=== PATIENT | male | born 1930 | race Caucasian/White ===

== ENCOUNTER 2020-05-26 11:34 | Emergency (ER) | payer OTHER ==
[2020-05-26 11:43] VITALS: BP 159/66; PULSE 61; BMI 33.3
--- OUTSIDE RECORDS SUMMARY | 2020-05-26 11:50 | XMS ---
:1930 Author Organization [facility] Support Name Relationship Address Phone RE Unavailable Unavailable Unavailable SCOTT DIAZ DAUGHTER [address] [phone] [place] [address] Re-disclosure Warning The records that you are about to access may contain information from federally- assisted alcohol or drug abuse programs. If such information is present, then the following federally mandated warning applies: This information has been disclosed to you from records protected by federal confidentiality rules (42 CFR part 2). The federal rules prohibit you from making any further disclosure of this information unless further disclosure is expressly permitted by the written consent of the person to whom it pertains or as otherwise permitted by 42 CFR part 2. A general authorization for the release of medical or other information is NOT sufficient for this purpose. The Federal rules restrict any use of the information to criminally investigate or prosecute any alcohol or drug abuse patient.The records that you are about to access may contain highly sensitive health information, the redisclosure of which is protected by Article 27-F of the [facility] Public Health law. If you continue you may haveaccess to information: Regarding HIV / AIDS; Provided by facilities licensed or operated by the [facility] Office of Mental Health; or Provided by the [facility] Office for People With Developmental Disabilities. If such information is present, then the following [facility] mandated warning applies: This information has been disclosed to you from confidential records which are protected by state law. State law prohibits you from making any further disclosure of this information without the specific written consent of the person to whom it pertains, or as otherwise permitted by law. Any unauthorized further disclosure in violation of state law may result in a fine or retirement sentence or both. A general authorization for the release of medical or other information is NOT sufficient authorization for further disclosure. Insurance Providers Payer name Policy type Policy ID Covered Covered green party's Policy P cecily / Coverage green party ID relationship to [employer] Inf ormation type moore MEDICAID [id number] SP [id number] [employer] [facility] [id number] SP [id number] MEDICARE Results ID Date Data Source [id number] 05/20/2020 12:00:00 AM EDT [facility] Name Value Range Interpretation Code Description Data Xiomy rce(s) Supporting Document(s ) SARS-COV-2 [facility] QL CONOR+PROBE This lab was ordered by Galindo SUERO and reported by [facility]. Procedure
--- NOTE | 2020-05-26 11:57 | PDOC ---
History of Present Illness - General Chief Complaint: Injury Stated Complaint: R/ARM INJURY Time Seen by Provider: 05/26/20 11:56 History Source: Patient Exam Limitations: No Limitations Past History - Travel History Traveled outside of the country in the last 30 days: No Close contact w/someone who was outside of country & ill: No - Medical History Allergies/Adverse Reactions: Allergies Allergy/AdvReac Type Severity Reaction Status Date / Time No Known Allergies Allergy Verified 05/26/20 11:43 COPD: No Diabetes: Yes HTN: Yes Hypercholesterolemia: Yes - Psycho-Social/Smoking History Smoking History: Never smoked Review of Systems - Review of Systems Able to Perform ROS?: Yes Comments:: 05/26/20 14:50 CONSTITUTIONAL: Absent: fever, chills, diaphoresis, generalized weakness, malaise, loss of appetite HEENT: Absent: rhinorrhea, nasal congestion, throat pain, throat swelling, difficulty swallowing, mouth swelling, ear pain, eye pain, visual Changes CARDIOVASCULAR: Absent: chest pain, loss of consciousness, palpitations, irregular heart rate, peripheral edema RESPIRATORY: Absent: cough, shortness of breath, dyspnea with exertion, orthopnea, wheezing, stridor, hemoptysis GASTROINTESTINAL: Absent: abdominal pain, abdominal distension, nausea, vomiting, diarrhea, constipation, melena, hematochezia GENITOURINARY: Absent: dysuria, frequency, urgency, hesitancy, hematuria, flank pain, genital pain MUSCULOSKELETAL: Present: R wrist pain Absent: myalgia, arthralgia, joint swelling SKIN: Present: abrasion to R forehead. Absent: rash, itching, pallor HEMATOLOGIC/IMMUNOLOGIC: Absent: easy bleeding, easy bruising, lymphadenopathy, frequent infections ENDOCRINE: Absent: unexplained weight gain, unexplained weight loss, heat intolerance, cold intolerance NEUROLOGIC: Absent: headache, focal weakness or paresthesias, dizziness, unsteady gait, seizure, mental status changes, bladder or bowel incontinence PSYCHIATRIC: Absent: anxiety, depression, suicidal or homicidal ideation, hallucinations. Is the patient limited Tajik proficient: No *Physical Exam - Vital Signs Last Vital Signs Temp Pulse Resp BP Pulse Ox 97 F L 61 18 159/66 97 05/26/20 11:37 05/26/20 11:37 05/26/20 11:37 05/26/20 11:37 05/26/20 11:37 - Physical Exam 05/26/20 14:51 GENERAL: Well developed, well nourished. Awake and alert. No acute distress. HEENT: Normocephalic, atraumatic. PERRLA, EOMI. No conjunctival pallor. Sclera are non- icteric. Moist mucous membranes. Oropharynx is clear. NECK: Supple. Full ROM. No JVD. Carotid pulses 2+ and symmetric, without bruits. No thyromegaly. No lymphadenopathy. CARDIOVASCULAR: Regular rate and rhythm. No murmurs, rubs, or gallops. Distal pulses are 2+ and symmetric. PULMONARY: No evidence of respiratory distress. Lungs clear to auscultation bilaterally. No wheezing, rales or rhonchi. ABDOMINAL: Soft. Non-tender. Non-distended. No rebound or guarding. No organomegaly. Normoactive bowel sounds. MUSCULOSKELETAL TTP of the dorsal aspect of the R wrist over the radial head with minimal swelling. Normal range of motion at all joints. No bony deformities or tenderness. No CVA tenderness. EXTREMITIES: No cyanosis. No clubbing. No edema. No calf tenderness. SKIN: Abrasion present to the R forehead. Warm and dry. Normal capillary refill. No rashes. No jaundice. NEUROLOGICAL: Alert, awake, appropriate. Cranial nerves 2-12 intact. No deficits to light touch and temperature in face, upper extremities and lower extremities. No motor deficits in the in face, upper extremities and lower extremities. Normoreflexic in the upper and lower extremities. Normal speech. Toes are down-going bilaterally. Gait is normal without ataxia. PSYCHIATRIC: Cooperative. Good eye contact. Appropriate mood and affect. ED Treatment Course - LABORATORY CBC & Chemistry Diagram: 05/26/20 12:35 05/26/20 12:35 - RADIOLOGY Radiology Studies Ordered: Category Date Time Status HEAD CT WITHOUT CONTRAST [CT] Stat CT Scan 05/26/20 11:56 Ordered WRIST W/HAND-RIGHT* [RAD] Stat Radiology 05/26/20 11:57 Ordered Medical Decision Making - Medical Decision Making 05/26/20 14:56 Patient is an 89-year-old male, past medical history of CKD, not on blood thinners, presents to the ER for injuries after a fall on Wednesday. He states he was walking out of the bank when he felt a little dizzy, missed the curb and fell on right outstretched hand. He states he also hit his head against the sidewalk. He denies losing consciousness, nausea, dizziness and vomiting. He states he came to the ER today because his right hand still hurts. He also notes he has right knee pain as a result of the fall. A/P: Right wrist injury On exam patient has a hematoma present to the dorsal aspect of the right hand over the radial head. No anatomical snuffbox tenderness. Patient is full range of motion of the right hand. He is right-hand dominant. Patient is neurologically intact with no focal deficits. Abdomen soft nontender without rebound guarding or tenderness. Given fall with questionable dizziness, work-up ordered including basic labs, EKG and head CT. Labs remarkable for platelets of 85. This seems to be off of the patient's baseline. Creatinine and BUN are both elevated however at baseline. Wrist x-ray, knee x-ray both negative for fractures. Head CT shows no bleed at this time. Likely hematoma to the wrist causing pain. Will recommend supportive therapy and give a wrist brace for comfort. Will refer to orthopedics for further management. Explained to the patient's daughter that his platelets were low at 85 today. She states he has an appointment with his primary care doctor tomorrow. Advised to follow-up and have a repeat blood draw regarding his platelet count. Patient is stable for discharge I discussed the physical exam findings, ancillary test results and final diagnoses with the patient. I answered all of the patient's questions. The patient was satisfied with the care received and felt comfortable with the discharge plan and treatment plan. The Patient agrees to follow up with the primary care physician/specialist within 24-72 hours. Return precautions were given. Discharge - Discharge Information Problems reviewed: Yes Clinical Impression/Diagnosis: Fall Qualifiers: Encounter type: initial encounter Qualified Code(s): W19.XXXA - Unspecified fall, initial encounter Condition: Stable Disposition: HOME - Admission No - Follow up/Referral Referrals: Farnaz Mcdaniels MD [Primary Care Provider] - Sincere Osorio DO [Staff Physician] - - Patient Discharge Instructions Patient Printed Discharge Instructions: DI for Hematoma (Bruise) Additional Instructions: You were seen for injuries after your fall today. You have a bruise to your right hand. You may take Tylenol 650 mg every 6 hours as needed for pain. Please wear the wrist splint for comfort. You may also ice the area for 20-minute intervals to help reduce the swelling. Please follow-up with orthopedics this week for further management of your symptoms. Referrals been provided to you. Your blood work showed a platelet count of 85. Please follow-up with your primary care doctor tomorrow regarding these results. He may be more prone to bleeding as his platelet count is low. Return to the ER for nausea, vomiting, lightheadedness, dizziness, headache or if he has any changes in his symptoms. Te vieron por lesiones despus de tu cada de hoy. Tienes un hematoma en la mano derecha. Puede ghada Tylenol 650 mg cada 6 horas segn sea necesario para el dolor. Por favor, use la frula de mueca para mayor comodidad. Jakobbin puede congelar el bishop rickey intervalos de 20 minutos para ayudar a reducir la hinchazn. Por favor, apul un seguimiento con ortopedia esta semana para un mayor manejo de yayo sntomas. Se le proporcionaron referencias. Calzada anlisis de ryan mostr un recuento de plaquetas de 85. Por favor, paul un seguimiento con calzada mdico de atencin primaria maana con respecto a estos resultados. Puede ser ms propenso al sangrado, ya que calzada recuento de plaquetas es bajo. Regrese a Urgencias, vmitos, aturdimiento, mareos, dolor de mariaelena o si tiene algn cambio en yayo sntomas. Print Language: THAI - Post Discharge Activity
[2020-05-26 12:25] VITALS: TEMP 98.8
[2020-05-26 13:06] LABS: BASO % 0.4 % (0-2.0); EOS % 1.4 % (0-4.5); HEMATOCRIT 34.8 % (35.4-49); HEMOGLOBIN 11.9 GM/dL (11.7-16.9); LYMPH % 13.8 % (8-40); MCH 32.4 pg (25.7-33.7); MCHC 34.2 g/dl (32.0-35.9); MEAN CELL VOLUME 94.7 fl (80-96); MEAN PLT VOLUME 11.2 fl (7.5-11.1); MONO % 11.8 % (3.8-10.2); NEUT % 72.6 % (42.8-82.8); PLATELET COUNT 85 K/MM3 (134-434); RBC 3.68 M/mm3 (4.00-5.60); RDW 12.6 % (11.9-15.9); WHITE BLOOD COUNT 6.6 K/mm3 (4.0-10.0)
[2020-05-26 13:33] LABS: ALBUMIN 3.9 g/dl (3.4-5.0); ALK PHOS 66 U/L (45-117); ANION GAP 7 MMOL/L (8-16); BILIRUBIN,TOTAL 0.7 mg/dL (0.2-1); CALCIUM 9.4 mg/dL (8.5-10.1); CHLORIDE 106 mmol/L (98-107); CO2 27 mmol/L (21-32); CREATININE 1.9 mg/dL (0.55-1.3); GLUCOSE,RANDOM 194 mg/dL (74-106); POTASSIUM 4.2 mmol/L (3.5-5.1); SGOT/AST 13 U/L (15-37); SGPT/ALT 15 U/L (13-61); SODIUM 140 mmol/L (136-145); TOT PROT 7.6 g/dl (6.4-8.2)
[2020-05-26] MEDS ORDERED: ACETAMINOPHEN 325 MG TABLET (FP) PO ONE (13:40)
[2020-05-26] MEDS ORDERED: ACETAMINOPHEN 500 MG TABLET (FP) ONE (13:44)
[2020-05-26 14:26] LABS: EPI CELLS 3 /uL (0-25.1); HYALINE CASTS 1 /uL (0-3.1); URINE APPEARANCE CLEAR; URINE BACTERIA 5 /uL (0-1359); URINE BILIRUBIN NEGATIVE (NEGATIVE); URINE COLOR YELLOW; URINE GLUCOSE (UA) 3+ (NEGATIVE); URINE KETONE NEGATIVE (NEGATIVE); URINE LEUK ESTERASE NEGATIVE (NEGATIVE); URINE NITRITE NEGATIVE (NEGATIVE); URINE PROTEIN 2+ (NEGATIVE); URINE RBC 4 /uL (0-23.9); URINE UROBILINOGEN 0.2 mg/dL (0.2-1.0); URINE WBC 2 /uL (0-25.8)
--- NOTE | 2020-05-27 14:07 | EKG ---
Test Reason : Blood Pressure : / mmHG Vent. 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
== END 2020-05-26 15:12 | disposition home or self-care (01) ==
LOC: JERFT 11:34 → JER 11:34
DX: S69.91XA Unspecified injury of right wrist, hand and finger(s), initial encounter (principal)
CPT/HCPCS: 36415; 70450-TC; 73110-TC-RT-FY; 73130-TC-RT-FY; 73562-TC-RT-FY; 80053; 81003; 82550; 82553; 84484; 85025; 87086; 93005; 93010; 99285-25

== ENCOUNTER 2020-09-04 11:06 | Inpatient (IN) | payer OTHER ==
[2020-09-04 12:23] LABS: VENOUS O2 SATURATION 56.9 % (70-80)
[2020-09-04 12:25] LABS: VENOUS PH 7.172 (7.310-7.410)
[2020-09-04 12:34] LABS: BASO % 0.3 % (0-2.0); HEMATOCRIT 36.1 % (35.4-49); HEMOGLOBIN 12.1 GM/dL (11.7-16.9); LYMPH % 27.4 % (8-40); MCH 31.4 pg (25.7-33.7); MCHC 33.6 g/dl (32.0-35.9); MEAN CELL VOLUME 93.3 fl (80-96); MEAN PLT VOLUME 11.9 fl (7.5-11.1); MONO % 11.8 % (3.8-10.2); NEUT % 60.5 % (42.8-82.8); PLATELET COUNT 56 K/MM3 (134-434); RBC 3.87 M/mm3 (4.00-5.60); RDW 13.4 % (11.9-15.9); WHITE BLOOD COUNT 3.7 K/mm3 (4.0-10.0)
[2020-09-04 12:47] LABS: CHLORIDE 108 mmol/L (98-107); SODIUM 137 mmol/L (136-145)
[2020-09-04 12:50] LABS: ALBUMIN 3.1 g/dl (3.4-5.0); BLOOD UREA NITROGEN 59.1 mg/dL (7-18); CALCIUM 8.1 mg/dL (8.5-10.1); CO2 21 mmol/L (21-32); GLUCOSE,RANDOM 162 mg/dL (74-106)
[2020-09-04 12:53] LABS: CREATININE 3.2 mg/dL (0.55-1.3)
[2020-09-04 12:55] LABS: BILIRUBIN,TOTAL 0.5 mg/dL (0.2-1); TOT PROT 8.3 g/dl (6.4-8.2)
[2020-09-04 12:56] LABS: ALK PHOS 54 U/L (45-117)
[2020-09-04 12:58] LABS: ANION GAP 7 MMOL/L (8-16); SGOT/AST 119 U/L (15-37); SGPT/ALT 30 U/L (13-61)
[2020-09-04 13:09] LABS: POTASSIUM 7.7 mmol/L (3.5-5.1)
[2020-09-04] MEDS ORDERED: DEXAMETHASONE SOD PHOSPHATE 10 MG/1 ML VIAL IVPUSH ONE (13:09)
[2020-09-04] MEDS ORDERED: SODIUM CHLORIDE 0.9% 1000 ML INFUS.BAG IV ONE ×2 (13:12→17:04)
[2020-09-04] MEDS ORDERED: CEFTRIAXONE 1,000 MG in DEXTROSE 5%-WATER - 50 ML IVPB ONE (13:13)
[2020-09-04] MEDS ORDERED: AZITHROMYCIN IVPB 500 MG in DEXTROSE 5%-WATER - 250 ML IVPB ONE (13:13)
[2020-09-04] MEDS ORDERED: DEXAMETHASONE SOD PHOSPHATE 10 MG/1 ML VIAL ONE (13:18)
[2020-09-04] MEDS ORDERED: CEFTRIAXONE 1 GM/50 ML BAG ONE (13:19)
[2020-09-04] MEDS ORDERED: AZITHROMYCIN IVPB 500 MG/250 ML BAG IVPB ONE (13:19)
[2020-09-04] MEDS ORDERED: SODIUM BICARBONATE 8.4% 50 MEQ/50 ML DISP.SYRIN IVPUSH ONE (13:53)
[2020-09-04] MEDS ORDERED: CALCIUM GLUCONATE 10% - 1,000 MG/10 ML VIAL IVPUSH ONE (13:54)
[2020-09-04] MEDS ORDERED: SODIUM BICARBONATE 8.4% - 50 ML ONE (14:41)
[2020-09-04] MEDS ORDERED: CALCIUM GLUCONATE 10% - 1,000 MG/10 ML VIAL ONE (14:41)
[2020-09-04 15:53] LABS: LDH > 1000 U/L (87-246)
[2020-09-04 15:56] LABS: BILIRUBIN,DIRECT < 0.1 mg/dL (0.0-0.2)
[2020-09-04] MEDS ORDERED: SODIUM CHLORIDE 1,000 ML IV SCH (19:15)
[2020-09-04] MEDS ORDERED: ALBUTEROL SO4 HFA INHALER IH PRN (19:15)
[2020-09-04 21:48] LABS: EPI CELLS 9 /uL (0-25.1); HYALINE CASTS 1 /uL (0-3.1); URINE APPEARANCE CLEAR; URINE BACTERIA 540 /uL (0-1359); URINE BILIRUBIN NEGATIVE (NEGATIVE); URINE COLOR YELLOW; URINE GLUCOSE (UA) 3+ (NEGATIVE); URINE KETONE NEGATIVE (NEGATIVE); URINE LEUK ESTERASE NEGATIVE (NEGATIVE); URINE NITRITE NEGATIVE (NEGATIVE); URINE PROTEIN 2+ (NEGATIVE); URINE RBC 28 /uL (0-23.9); URINE UROBILINOGEN 0.2 mg/dL (0.2-1.0); URINE WBC 8 /uL (0-25.8)
[2020-09-04] MEDS ORDERED: ASCORBIC ACID 500 MG TABLET (FP) ONE (21:55)
[2020-09-04] MEDS ORDERED: HEPARIN NA (PORCINE) 5,000 UNITS/ML 1ML VIAL ONE (21:55)
[2020-09-04] MEDS ORDERED: BUDESONIDE/FORMETEROL FUMARATE 160/4.5 mcg INHALER IH SCH (22:00)
[2020-09-04] MEDS ORDERED: ASCORBIC ACID 500 MG TABLET (FP) PO SCH (22:00)
[2020-09-04] MEDS: HEPARIN NA (PORCINE) 5,000 UNITS/ML 1ML VIAL SQ SCH (22:06)
[2020-09-04] MEDS: INSULIN SLIDING SCALE (NOVOLOG) 1 VIAL SQ SCH (22:07)
[2020-09-04 23:53] LABS: INR 1.01 (0.83-1.09); PROTHROMBIN TIME (PATIENT) 12.4 SEC (9.7-13.0)
[2020-09-05] MEDS: INSULIN SLIDING SCALE (NOVOLOG) 1 VIAL SQ SCH ×4 (06:50→21:02)
[2020-09-05] MEDS: HEPARIN NA (PORCINE) 5,000 UNITS/ML 1ML VIAL SQ SCH (06:51)
[2020-09-05 08:50] LABS: BASO % 0.1 % (0-2.0); HEMATOCRIT 32.4 % (35.4-49); HEMOGLOBIN 11.1 GM/dL (11.7-16.9); LYMPH % 17.1 % (8-40); MCH 31.6 pg (25.7-33.7); MCHC 34.3 g/dl (32.0-35.9); MEAN CELL VOLUME 92.1 fl (80-96); NEUT % 71.8 % (42.8-82.8); PLATELET COUNT 45 K/MM3 (134-434); RBC 3.52 M/mm3 (4.00-5.60); RDW 12.5 % (11.9-15.9); WHITE BLOOD COUNT 3.1 K/mm3 (4.0-10.0)
[2020-09-05 09:02] LABS: INR 0.97 (0.83-1.09); PROTHROMBIN TIME (PATIENT) 11.7 SEC (9.7-13.0)
[2020-09-05 09:09] LABS: POTASSIUM 4.2 mmol/L (3.5-5.1)
[2020-09-05 09:11] LABS: CALCIUM 8.2 mg/dL (8.5-10.1)
[2020-09-05 09:12] LABS: BLOOD UREA NITROGEN 56.7 mg/dL (7-18); MAGNESIUM 2.1 mg/dL (1.8-2.4)
[2020-09-05 09:15] LABS: CREATININE 2.6 mg/dL (0.55-1.3); PHOSPHOROUS 4.8 mg/dL (2.5-4.9)
[2020-09-05 09:17] LABS: BILIRUBIN,TOTAL 0.4 mg/dL (0.2-1); TOT PROT 6.8 g/dl (6.4-8.2)
[2020-09-05] MEDS ORDERED: cefTRIAXone SODIUM 1 GM VIAL ONE (09:31)
[2020-09-05] MEDS ORDERED: DEXTROSE 5%-WATER - 50 ML IVPB ONE (09:31)
[2020-09-05] MEDS: CEFTRIAXONE 1 GM in DEXTROSE 5%-WATER - 50 ML IVPB SCH (09:43)
[2020-09-05] MEDS: CHOLECALCIFEROL (VIT D3) 1,000 UNIT (25 MCG) TABLET PO SCH (09:43)
[2020-09-05] MEDS: DEXAMETHASONE SOD PHOSPHATE 4 MG/1 ML VIAL IVPUSH SCH (09:43)
[2020-09-05] MEDS: PANTOPRAZOLE 40 MG TABLET PO SCH (09:43)
[2020-09-05] MEDS: ZINC SULFATE 220 MG CAPSULE (FP) PO SCH (09:43)
[2020-09-05] MEDS: AZITHROMYCIN IVPB 250 MG in DEXTROSE 5%-WATER - 250 ML IVPB SCH (09:45)
[2020-09-05] MEDS ORDERED: ZINC SULFATE 220 MG CAPSULE (FP) PO SCH (10:00)
[2020-09-05] MEDS ORDERED: ENOXAPARIN NA (PORCINE) 100 MG/1 ML DISP.SYRIN SQ SCH ×2 (10:00)
[2020-09-05] MEDS ORDERED: SODIUM CHLORIDE 1,000 ML IV SCH (12:15)
[2020-09-05] MEDS ORDERED: REMDESIVIR 200 MG in SODIUM CHLORIDE 210 ML IVPB ONE (13:00)
[2020-09-05] MEDS ORDERED: LACTATED RINGERS SOLUTION 1,000 ML/1,000 ML INFUS.BAG IV SCH ×2 (16:15)
[2020-09-05 19:13] LABS: EPI CELLS 8 /uL (0-25.1); HYALINE CASTS 1 /uL (0-3.1); URINE APPEARANCE CLOUDY; URINE BACTERIA 64 /uL (0-1359); URINE BILIRUBIN NEGATIVE (NEGATIVE); URINE COLOR YELLOW; URINE GLUCOSE (UA) 3+ (NEGATIVE); URINE KETONE NEGATIVE (NEGATIVE); URINE LEUK ESTERASE NEGATIVE (NEGATIVE); URINE NITRITE NEGATIVE (NEGATIVE); URINE PROTEIN 2+ (NEGATIVE); URINE UROBILINOGEN 0.2 mg/dL (0.2-1.0); URINE WBC 12 /uL (0-25.8)
[2020-09-05] MEDS ORDERED: HALOPERIDOL LACTATE 5 MG/ML IM ONE (20:40)
[2020-09-06] MEDS: INSULIN SLIDING SCALE (NOVOLOG) 1 VIAL SQ SCH ×3 (06:38→17:03)
[2020-09-06 07:56] LABS: POTASSIUM 4.3 mmol/L (3.5-5.1)
[2020-09-06 08:06] LABS: CALCIUM 7.9 mg/dL (8.5-10.1)
[2020-09-06 08:07] LABS: BLOOD UREA NITROGEN 62.4 mg/dL (7-18)
[2020-09-06 08:10] LABS: CREATININE 2.6 mg/dL (0.55-1.3)
[2020-09-06 08:11] LABS: BILIRUBIN,TOTAL 0.8 mg/dL (0.2-1); TOT PROT 6.6 g/dl (6.4-8.2)
[2020-09-06] MEDS ORDERED: DEXTROSE 5%-WATER - 50 ML IVPB ONE (09:47)
[2020-09-06] MEDS ORDERED: cefTRIAXone SODIUM 1 GM VIAL ONE (09:47)
[2020-09-06] MEDS: CHOLECALCIFEROL (VIT D3) 1,000 UNIT (25 MCG) TABLET PO SCH (10:38)
[2020-09-06] MEDS: PANTOPRAZOLE 40 MG TABLET PO SCH (10:38)
[2020-09-06] MEDS: ZINC SULFATE 220 MG CAPSULE (FP) PO SCH (10:38)
[2020-09-06 10:41] LABS: BASO % 0.2 % (0-2.0); HEMATOCRIT 31.4 % (35.4-49); HEMOGLOBIN 10.8 GM/dL (11.7-16.9); LYMPH % 7.8 % (8-40); MCH 31.7 pg (25.7-33.7); MCHC 34.4 g/dl (32.0-35.9); MEAN CELL VOLUME 92.3 fl (80-96); MEAN PLT VOLUME 11.5 fl (7.5-11.1); MONO % 9.8 % (3.8-10.2); NEUT % 82.2 % (42.8-82.8); PLATELET COUNT 60 K/MM3 (134-434); RDW 12.8 % (11.9-15.9); WHITE BLOOD COUNT 5.1 K/mm3 (4.0-10.0)
[2020-09-06] MEDS ORDERED: HALOPERIDOL LACTATE 5 MG/ML IM ONE ×2 (10:45→12:15)
[2020-09-06] MEDS: CEFTRIAXONE 1 GM in DEXTROSE 5%-WATER - 50 ML IVPB SCH (10:56)
[2020-09-06] MEDS: DEXAMETHASONE SOD PHOSPHATE 4 MG/1 ML VIAL IVPUSH SCH (11:46)
[2020-09-06] MEDS ORDERED: REMDESIVIR 100 MG in SODIUM CHLORIDE 230 ML IVPB SCH (11:58)
[2020-09-06] MEDS: AZITHROMYCIN IVPB 250 MG in DEXTROSE 5%-WATER - 250 ML IVPB SCH (12:38)
[2020-09-06] MEDS: LACTATED RINGERS SOLUTION 1,000 ML/1,000 ML INFUS.BAG IV SCH (16:01)
[2020-09-06] MEDS ORDERED: MECLIZINE HCL 12.5 MG TABLET PO PRN (17:10)
[2020-09-06] MEDS ORDERED: QUEtiapine FUMARATE 25 MG TABLET PO SCH ×2 (22:00)
[2020-09-06] MEDS ORDERED: MELATONIN 5 MG TABLETS PO SCH (22:00)
[2020-09-06] MEDS ORDERED: ATORVASTATIN CA 20 MG TABLET (FP) PO SCH (22:00)
[2020-09-07] MEDS: INSULIN SLIDING SCALE (NOVOLOG) 1 VIAL SQ SCH ×5 (05:52→21:04)
[2020-09-07] MEDS ORDERED: LEVOTHYROXINE NA 50 MCG TABLET (FP) PO SCH (07:00)
[2020-09-07 07:16] LABS: BASO % 0.1 % (0-2.0); HEMATOCRIT 33.6 % (35.4-49); HEMOGLOBIN 11.5 GM/dL (11.7-16.9); LYMPH % 4.5 % (8-40); MCH 31.3 pg (25.7-33.7); MCHC 34.1 g/dl (32.0-35.9); MEAN CELL VOLUME 91.9 fl (80-96); MEAN PLT VOLUME 11.2 fl (7.5-11.1); MONO % 8.3 % (3.8-10.2); NEUT % 87.1 % (42.8-82.8); PLATELET COUNT 68 K/MM3 (134-434); RBC 3.66 M/mm3 (4.00-5.60); RDW 12.9 % (11.9-15.9); WHITE BLOOD COUNT 6.8 K/mm3 (4.0-10.0)
[2020-09-07 07:31] LABS: POTASSIUM 4.6 mmol/L (3.5-5.1)
[2020-09-07 07:40] LABS: CALCIUM 8.4 mg/dL (8.5-10.1)
[2020-09-07 07:43] LABS: ALBUMIN 2.9 g/dl (3.4-5.0); BLOOD UREA NITROGEN 65.4 mg/dL (7-18); CREATININE 2.3 mg/dL (0.55-1.3); MAGNESIUM 2.2 mg/dL (1.8-2.4)
[2020-09-07 07:50] LABS: BILIRUBIN,TOTAL 0.4 mg/dL (0.2-1)
[2020-09-07] MEDS ORDERED: ALBUTEROL SO4 HFA INHALER IH PRN ×2 (08:11→19:09)
[2020-09-07] MEDS ORDERED: TAMSULOSIN HCL 0.4 MG CAP PO SCH (08:30)
[2020-09-07] MEDS ORDERED: CEFTRIAXONE 1 GM in DEXTROSE 5%-WATER - 50 ML IVPB SCH (10:00)
[2020-09-07] MEDS ORDERED: ASPIRIN 81 MG CHEWABLE TABLETS PO SCH (10:00)
[2020-09-07] MEDS ORDERED: amLODIPine BESYLATE 5 MG TABLET (FP) PO SCH (10:00)
[2020-09-07] MEDS ORDERED: ZINC SULFATE 220 MG CAPSULE (FP) PO SCH (10:00)
[2020-09-07] MEDS ORDERED: LOSARTAN POTASSIUM 50 MG TABLET PO SCH (10:00)
[2020-09-07] MEDS ORDERED: cefTRIAXone SODIUM 1 GM VIAL ONE (10:00)
[2020-09-07] MEDS ORDERED: PANTOPRAZOLE 40 MG TABLET PO SCH (10:00)
[2020-09-07] MEDS ORDERED: DEXAMETHASONE SOD PHOSPHATE 4 MG/1 ML VIAL IVPUSH SCH (10:00)
[2020-09-07] MEDS ORDERED: AZITHROMYCIN IVPB 250 MG in DEXTROSE 5%-WATER - 250 ML IVPB SCH (10:00)
[2020-09-07] MEDS ORDERED: PATIENT'S OWN MEDICATION (NON-FORMULARY) (Amlodipine Bes/Olmesartan Med [Amlodipine-Olmesa PO SCH (10:00)
[2020-09-07] MEDS ORDERED: CHOLECALCIFEROL (VIT D3) 1,000 UNIT (25 MCG) TABLET PO SCH (10:00)
[2020-09-07] MEDS ORDERED: metoPROLOL SUCCINATE 25 MG TAB.SR.24H (FP) PO SCH (10:00)
[2020-09-07] MEDS ORDERED: DEXTROSE 5%-WATER - 50 ML IVPB ONE (10:01)
[2020-09-07] MEDS: LACTATED RINGERS SOLUTION 1,000 ML/1,000 ML INFUS.BAG IV SCH (16:37)
[2020-09-07] MEDS ORDERED: PROPOFOL 200 MG/20 ML VIAL IVPUSH ONE (18:35)
[2020-09-07] MEDS ORDERED: MIDAZOLAM HCL 2 MG/2 ML SINGLE DOSE VIAL IVPUSH ONE (18:35)
[2020-09-07] MEDS ORDERED: PROPOFOL 1,000,000 MCG/100 ML VIAL ONE (18:43)
[2020-09-07] MEDS ORDERED: FENTANYL NS IVPB 500 MCG/100 ML BAG IVPB ONE (18:43)
[2020-09-07] MEDS ORDERED: FENTANYL D5W IVPB 1,000 MCG/200 ML BAG IVPB SCH (18:45)
[2020-09-07] MEDS: PROPOFOL 1,000,000 MCG/100 ML VIAL IVPB SCH (19:10)
[2020-09-07] MEDS: FENTANYL IVPB 500 MCG/100 ML BAG IVPB SCH (19:10)
[2020-09-07] MEDS ORDERED: ROCURONIUM BROMIDE 50 MG/5 ML VIAL IV ONE ×2 (19:23→21:28)
[2020-09-07] MEDS ORDERED: MIDAZOLAM HCL 2 MG/2 ML SINGLE DOSE VIAL ONE (19:23)
[2020-09-07] MEDS ORDERED: PHENYLEPHRINE NS PREMIX 25,000 MCG/250 ML BAG CVP SCH (20:45)
[2020-09-07] MEDS: MIDAZOLAM IN 0.9 % SOD.CHLORID 100 MG/100 ML PLAST..BAG IVPB SCH (20:52)
[2020-09-07 20:57] LABS: ARTERIAL BLD GAS O2 SATURATION 89.3 mmHg (95-98); ARTERIAL BLOOD GAS BASE EXCESS -3.6 mmol/L (-2-2); ARTERIAL BLOOD GAS PO2 60.4 mmHg (80-100); ARTERIAL BLOOD GAS pH 7.324 (7.350-7.450)
[2020-09-07 20:58] LABS: ALLENS TEST POSITIVE; PT'S TEMP 98.6
[2020-09-07 20:59] LABS: VENT MODE A/C; VENT RATE 20
[2020-09-07] MEDS: MUPIROCIN 2% TOPICAL OINTMENT FOR DECOLONIZATION NS SCH (21:04)
[2020-09-07] MEDS: CHLORHEXIDINE GLUCONATE 4% CLEANSER FOR DECOLONIZATION TP SCH (21:04)
[2020-09-07] MEDS ORDERED: ROCURONIUM BROMIDE 100 MG/10 ML VIAL IV ONE (21:28)
[2020-09-07] MEDS: PHENYLEPHRINE NS PREMIX 50,000 MCG/500 ML BAG CVP SCH (22:05)
[2020-09-08] MEDS ORDERED: ARTIFICIAL TEARS (POLYVINYL ALCOHOL) OPTH DROPS OU PRN (04:29)
[2020-09-08] MEDS ORDERED: FENTANYL NS IVPB 500 MCG/100 ML BAG IVPB ONE (06:56)
[2020-09-08] MEDS: VECURONIUM BROMIDE 100 MG/100 ML BAG IVPB SCH ×2 (07:09→22:57)
[2020-09-08] MEDS: INSULIN SLIDING SCALE (NOVOLOG) 1 VIAL SQ SCH ×4 (07:10→23:11)
[2020-09-08 07:25] LABS: HEMATOCRIT 32.5 % (35.4-49); HEMOGLOBIN 10.6 GM/dL (11.7-16.9); MCH 31.1 pg (25.7-33.7); MCHC 32.6 g/dl (32.0-35.9); MEAN CELL VOLUME 95.2 fl (80-96); MEAN PLT VOLUME 10.5 fl (7.5-11.1); PLATELET COUNT 89 K/MM3 (134-434); RBC 3.41 M/mm3 (4.00-5.60); RDW 13.3 % (11.9-15.9); WHITE BLOOD COUNT 11.5 K/mm3 (4.0-10.0)
[2020-09-08 07:38] LABS: POTASSIUM 5.5 mmol/L (3.5-5.1)
[2020-09-08 07:47] LABS: ALBUMIN 2.6 g/dl (3.4-5.0); MAGNESIUM 2.4 mg/dL (1.8-2.4)
[2020-09-08 07:48] LABS: BILIRUBIN,TOTAL 0.3 mg/dL (0.2-1)
[2020-09-08 07:49] LABS: TOT PROT 6.4 g/dl (6.4-8.2)
[2020-09-08 07:50] LABS: BILIRUBIN,DIRECT 0.2 mg/dL (0.0-0.2); CREATININE 2.8 mg/dL (0.55-1.3)
[2020-09-08 07:51] LABS: PHOSPHOROUS 7.4 mg/dL (2.5-4.9)
[2020-09-08] MEDS ORDERED: cefTRIAXone SODIUM 1 GM VIAL ONE (08:42)
[2020-09-08] MEDS ORDERED: DEXTROSE 5%-WATER - 50 ML IVPB ONE (08:42)
[2020-09-08 09:29] LABS: ARTERIAL BLD GAS O2 SATURATION 97.3 mmHg (95-98); ARTERIAL BLOOD GAS BASE EXCESS -7.3 mmol/L (-2-2); ARTERIAL BLOOD GAS PO2 121.7 mmHg (80-100)
[2020-09-08 09:33] LABS: ALLENS TEST POSITIVE; VENT MODE A/C
[2020-09-08 09:34] LABS: VENT RATE 20
[2020-09-08] MEDS: CEFTRIAXONE 1 GM in DEXTROSE 5%-WATER - 50 ML IVPB SCH (10:06)
[2020-09-08] MEDS: DEXAMETHASONE SOD PHOSPHATE 4 MG/1 ML VIAL IVPUSH SCH (10:07)
[2020-09-08] MEDS: PANTOPRAZOLE SODIUM 40 MG VIAL IVPUSH SCH (10:14)
[2020-09-08] MEDS: AZITHROMYCIN IVPB 250 MG in DEXTROSE 5%-WATER - 250 ML IVPB SCH (10:14)
[2020-09-08] MEDS: MUPIROCIN 2% TOPICAL OINTMENT FOR DECOLONIZATION NS SCH ×2 (10:14→21:17)
[2020-09-08 10:26] LABS: ARTERIAL BLOOD GAS pH 7.165 (7.350-7.450)
[2020-09-08] MEDS ORDERED: PT OWN MED DRAWER 7, Y5N ONE (19:16)
[2020-09-08] MEDS: SODIUM ZIRCONIUM CYCLOSILICATE (LOKELMA) 5 GM PACKET PO SCH (19:21)
[2020-09-08] MEDS: PROPOFOL 1,000,000 MCG/100 ML VIAL IVPB SCH (19:28)
[2020-09-08] MEDS: FENTANYL IVPB 500 MCG/100 ML BAG IVPB SCH (19:30)
[2020-09-08] MEDS ORDERED: MIDAZOLAM 100 MG/100 ML MG IVPB ONE (20:06)
[2020-09-08] MEDS: MIDAZOLAM IN 0.9 % SOD.CHLORID 100 MG/100 ML PLAST..BAG IVPB SCH (21:16)
[2020-09-08] MEDS: PHENYLEPHRINE NS PREMIX 50,000 MCG/500 ML BAG CVP SCH (21:16)
[2020-09-08] MEDS: CHLORHEXIDINE GLUCONATE 4% CLEANSER FOR DECOLONIZATION TP SCH (21:17)
[2020-09-08] MEDS: NOREPINEPHRINE BITARTRATE 16,000 MCG in SODIUM CHLORIDE 484 ML IV SCH (23:40)
[2020-09-08] MEDS ORDERED: NOREPINEPHRINE BITARTRATE 8,000 MCG/500 ML BAG IVPB ONE (23:40)
[2020-09-09] MEDS: VECURONIUM BROMIDE 100 MG/100 ML BAG IVPB SCH ×2 (00:30→21:43)
[2020-09-09] MEDS ORDERED: FENTANYL NS IVPB 500 MCG/100 ML BAG IVPB ONE (04:20)
[2020-09-09] MEDS: FENTANYL IVPB 500 MCG/100 ML BAG IVPB SCH ×3 (04:23→21:15)
[2020-09-09] MEDS: INSULIN SLIDING SCALE (NOVOLOG) 1 VIAL SQ SCH ×4 (06:17→21:17)
[2020-09-09 06:26] LABS: ARTERIAL BLD GAS O2 SATURATION 99.2 mmHg (95-98); ARTERIAL BLOOD GAS BASE EXCESS -7.6 mmol/L (-2-2); ARTERIAL BLOOD GAS PO2 221.8 mmHg (80-100)
[2020-09-09 06:45] LABS: ARTERIAL BLOOD GAS pH 7.144 (7.350-7.450)
[2020-09-09 06:46] LABS: ALLENS TEST POSITIVE; VENT MODE A/C; VENT RATE 26
[2020-09-09 06:46] LABS: BASO % 0.1 % (0-2.0); HEMOGLOBIN 11.5 GM/dL (11.7-16.9); LYMPH % 6.5 % (8-40); MCHC 32.8 g/dl (32.0-35.9); MEAN CELL VOLUME 94.6 fl (80-96); MEAN PLT VOLUME 10.3 fl (7.5-11.1); MONO % 7.7 % (3.8-10.2); NEUT % 85.7 % (42.8-82.8); PLATELET COUNT 89 K/MM3 (134-434); WHITE BLOOD COUNT 14.2 K/mm3 (4.0-10.0)
[2020-09-09 07:05] LABS: POTASSIUM 5.2 mmol/L (3.5-5.1)
[2020-09-09 07:13] LABS: ALBUMIN 2.6 g/dl (3.4-5.0)
[2020-09-09 07:14] LABS: BLOOD UREA NITROGEN 74.8 mg/dL (7-18); MAGNESIUM 2.6 mg/dL (1.8-2.4)
[2020-09-09 07:17] LABS: BILIRUBIN,TOTAL 0.2 mg/dL (0.2-1); PHOSPHOROUS 6.7 mg/dL (2.5-4.9); TOT PROT 6.7 g/dl (6.4-8.2)
[2020-09-09] MEDS ORDERED: DEXTROSE 5%-WATER - 50 ML IVPB ONE (09:12)
[2020-09-09] MEDS ORDERED: cefTRIAXone SODIUM 1 GM VIAL ONE (09:12)
[2020-09-09] MEDS: MUPIROCIN 2% TOPICAL OINTMENT FOR DECOLONIZATION NS SCH ×2 (09:17→21:18)
[2020-09-09] MEDS: DEXAMETHASONE SOD PHOSPHATE 4 MG/1 ML VIAL IVPUSH SCH (09:18)
[2020-09-09] MEDS: CEFTRIAXONE 1 GM in DEXTROSE 5%-WATER - 50 ML IVPB SCH (09:18)
[2020-09-09] MEDS: PANTOPRAZOLE SODIUM 40 MG VIAL IVPUSH SCH (09:18)
[2020-09-09] MEDS: SODIUM ZIRCONIUM CYCLOSILICATE (LOKELMA) 5 GM PACKET PO SCH (09:18)
[2020-09-09] MEDS: AZITHROMYCIN IVPB 250 MG in DEXTROSE 5%-WATER - 250 ML IVPB SCH (09:33)
[2020-09-09] MEDS ORDERED: SODIUM ZIRCONIUM CYCLOSILICATE (LOKELMA) 5 GM PACKET PO SCH ×2 (10:00)
[2020-09-09 10:56] LABS: ANISOCYTOSIS 0; MACROCYTOSIS 0; PLATELET ESTIMATE DECREASED
[2020-09-09] MEDS: PROPOFOL 1,000,000 MCG/100 ML VIAL IVPB SCH (18:08)
[2020-09-09] MEDS ORDERED: PT OWN MED DRAWER 7, Y5N ONE (21:15)
[2020-09-09] MEDS: MIDAZOLAM IN 0.9 % SOD.CHLORID 100 MG/100 ML PLAST..BAG IVPB SCH (21:15)
[2020-09-09] MEDS: CHLORHEXIDINE GLUCONATE 4% CLEANSER FOR DECOLONIZATION TP SCH (21:18)
[2020-09-10] MEDS: NOREPINEPHRINE BITARTRATE 16,000 MCG in SODIUM CHLORIDE 484 ML IV SCH (01:28)
[2020-09-10] MEDS: MIDAZOLAM 100 MG/100 ML MG IVPB SCH (05:51)
[2020-09-10 06:04] LABS: ARTERIAL BLD GAS O2 SATURATION 97.5 mmHg (95-98); ARTERIAL BLOOD GAS BASE EXCESS -4.5 mmol/L (-2-2); ARTERIAL BLOOD GAS pH 7.302 (7.350-7.450)
[2020-09-10 06:05] LABS: ALLENS TEST POSITIVE; VENT MODE A/C; VENT RATE 30
[2020-09-10] MEDS: INSULIN SLIDING SCALE (NOVOLOG) 1 VIAL SQ SCH ×4 (06:20→22:09)
[2020-09-10 07:38] LABS: BASO % 0.2 % (0-2.0); HEMATOCRIT 34.5 % (35.4-49); HEMOGLOBIN 11.4 GM/dL (11.7-16.9); LYMPH % 8.7 % (8-40); MCH 30.9 pg (25.7-33.7); MCHC 33.1 g/dl (32.0-35.9); MEAN CELL VOLUME 93.4 fl (80-96); MEAN PLT VOLUME 10.9 fl (7.5-11.1); MONO % 4.6 % (3.8-10.2); NEUT % 86.5 % (42.8-82.8); PLATELET COUNT 98 K/MM3 (134-434); RBC 3.69 M/mm3 (4.00-5.60); RDW 12.9 % (11.9-15.9); WHITE BLOOD COUNT 13.4 K/mm3 (4.0-10.0)
[2020-09-10 08:23] LABS: POTASSIUM 5.2 mmol/L (3.5-5.1)
[2020-09-10 08:32] LABS: CALCIUM 8.3 mg/dL (8.5-10.1)
[2020-09-10 08:33] LABS: ALBUMIN 2.2 g/dl (3.4-5.0); BLOOD UREA NITROGEN 86.5 mg/dL (7-18); MAGNESIUM 2.8 mg/dL (1.8-2.4)
[2020-09-10 08:36] LABS: CREATININE 2.9 mg/dL (0.55-1.3); PHOSPHOROUS 4.8 mg/dL (2.5-4.9)
[2020-09-10 08:37] LABS: BILIRUBIN,TOTAL 0.6 mg/dL (0.2-1)
[2020-09-10 08:38] LABS: TOT PROT 6.2 g/dl (6.4-8.2)
[2020-09-10] MEDS ORDERED: cefTRIAXone SODIUM 1 GM VIAL ONE (09:48)
[2020-09-10] MEDS ORDERED: DEXTROSE 5%-WATER - 50 ML IVPB ONE (09:48)
[2020-09-10] MEDS: CEFTRIAXONE 1 GM in DEXTROSE 5%-WATER - 50 ML IVPB SCH (10:26)
[2020-09-10] MEDS: MUPIROCIN 2% TOPICAL OINTMENT FOR DECOLONIZATION NS SCH ×2 (10:26→21:32)
[2020-09-10] MEDS: AZITHROMYCIN IVPB 250 MG in DEXTROSE 5%-WATER - 250 ML IVPB SCH (10:26)
[2020-09-10] MEDS: PANTOPRAZOLE SODIUM 40 MG VIAL IVPUSH SCH (10:35)
[2020-09-10] MEDS: DEXAMETHASONE SOD PHOSPHATE 4 MG/1 ML VIAL IVPUSH SCH (10:35)
[2020-09-10] MEDS ORDERED: PT OWN MED DRAWER 7, Y5N ONE (10:38)
[2020-09-10] MEDS: SODIUM ZIRCONIUM CYCLOSILICATE (LOKELMA) 10 GM PACKET PO SCH (10:40)
[2020-09-10] MEDS: FENTANYL IVPB 500 MCG/100 ML BAG IVPB SCH ×2 (14:09→21:31)
[2020-09-10] MEDS: AMINO ACIDS/PROTEIN HYDROLYS 30 ML LIQUID.PKT PO SCH (17:20)
[2020-09-10] MEDS: PROPOFOL 1,000,000 MCG/100 ML VIAL IVPB SCH ×2 (19:00→21:31)
[2020-09-10] MEDS: CHLORHEXIDINE GLUCONATE 4% CLEANSER FOR DECOLONIZATION TP SCH (21:32)
[2020-09-11] MEDS: VECURONIUM BROMIDE 100 MG/100 ML BAG IVPB SCH (02:23)
[2020-09-11] MEDS: NOREPINEPHRINE BITARTRATE 16,000 MCG in SODIUM CHLORIDE 484 ML IV SCH (02:23)
[2020-09-11] MEDS: MIDAZOLAM 100 MG/100 ML MG IVPB SCH ×2 (04:26→10:20)
[2020-09-11] MEDS: INSULIN SLIDING SCALE (NOVOLOG) 1 VIAL SQ SCH ×3 (06:10→17:20)
[2020-09-11 07:22] LABS: BASO % 0.1 % (0-2.0); HEMATOCRIT 31.3 % (35.4-49); HEMOGLOBIN 10.4 GM/dL (11.7-16.9); LYMPH % 5.9 % (8-40); MCH 31.2 pg (25.7-33.7); MCHC 33.3 g/dl (32.0-35.9); MEAN CELL VOLUME 93.7 fl (80-96); MEAN PLT VOLUME 9.4 fl (7.5-11.1); MONO % 6.8 % (3.8-10.2); NEUT % 87.2 % (42.8-82.8); PLATELET COUNT 68 K/MM3 (134-434); RBC 3.35 M/mm3 (4.00-5.60); RDW 13.2 % (11.9-15.9); WHITE BLOOD COUNT 8.9 K/mm3 (4.0-10.0)
[2020-09-11] MEDS: FENTANYL IVPB 500 MCG/100 ML BAG IVPB SCH ×3 (07:24→19:05)
[2020-09-11 07:36] LABS: POTASSIUM 5.4 mmol/L (3.5-5.1)
[2020-09-11 07:40] LABS: ALBUMIN 1.9 g/dl (3.4-5.0); CALCIUM 8.6 mg/dL (8.5-10.1)
[2020-09-11 07:43] LABS: CREATININE 3.3 mg/dL (0.55-1.3); PHOSPHOROUS 5.2 mg/dL (2.5-4.9)
[2020-09-11 07:45] LABS: BILIRUBIN,TOTAL 0.3 mg/dL (0.2-1); TOT PROT 5.8 g/dl (6.4-8.2)
[2020-09-11 08:17] LABS: BLOOD UREA NITROGEN 109.7 mg/dL (7-18)
[2020-09-11] MEDS: AMINO ACIDS/PROTEIN HYDROLYS 30 ML LIQUID.PKT PO SCH ×2 (08:32→17:22)
[2020-09-11] MEDS: PROPOFOL 1,000,000 MCG/100 ML VIAL IVPB SCH ×2 (08:57→19:00)
[2020-09-11] MEDS ORDERED: cefTRIAXone SODIUM 1 GM VIAL ONE (09:42)
[2020-09-11] MEDS ORDERED: DEXTROSE 5%-WATER - 50 ML IVPB ONE (09:42)
[2020-09-11] MEDS: DEXAMETHASONE SOD PHOSPHATE 4 MG/1 ML VIAL IVPUSH SCH (09:48)
[2020-09-11] MEDS: PANTOPRAZOLE SODIUM 40 MG VIAL IVPUSH SCH (09:48)
[2020-09-11] MEDS: CEFTRIAXONE 1 GM in DEXTROSE 5%-WATER - 50 ML IVPB SCH (09:49)
[2020-09-11] MEDS ORDERED: PT OWN MED DRAWER 7, Y5N ONE (10:44)
[2020-09-11] MEDS: MUPIROCIN 2% TOPICAL OINTMENT FOR DECOLONIZATION NS SCH ×2 (10:46→23:00)
[2020-09-11] MEDS: SODIUM ZIRCONIUM CYCLOSILICATE (LOKELMA) 10 GM PACKET PO SCH (10:47)
[2020-09-11] MEDS ORDERED: SODIUM ZIRCONIUM CYCLOSILICATE (LOKELMA) 5 GM PACKET PO ONE (22:00)
[2020-09-11] MEDS: CHLORHEXIDINE GLUCONATE 4% CLEANSER FOR DECOLONIZATION TP SCH (23:00)
[2020-09-12] MEDS: INSULIN SLIDING SCALE (NOVOLOG) 1 VIAL SQ SCH ×5 (00:35→22:03)
[2020-09-12] MEDS: VECURONIUM BROMIDE 100 MG/100 ML BAG IVPB SCH (00:36)
[2020-09-12] MEDS: NOREPINEPHRINE BITARTRATE 16,000 MCG in SODIUM CHLORIDE 484 ML IV SCH ×2 (02:05→08:00)
[2020-09-12 03:22] LABS: ALLENS TEST POSITIVE; ARTERIAL BLD GAS O2 SATURATION 94.3 mmHg (95-98); ARTERIAL BLOOD GAS BASE EXCESS -8.4 mmol/L (-2-2); ARTERIAL BLOOD GAS PO2 80.4 mmHg (80-100); ARTERIAL BLOOD GAS pH 7.265 (7.350-7.450); VENT MODE A/C; VENT RATE 30
[2020-09-12] MEDS: FENTANYL IVPB 500 MCG/100 ML BAG IVPB SCH ×2 (06:27→20:34)
[2020-09-12] MEDS: MIDAZOLAM 100 MG/100 ML MG IVPB SCH ×3 (06:27→22:00)
[2020-09-12] MEDS: PROPOFOL 1,000,000 MCG/100 ML VIAL IVPB SCH ×2 (06:28→20:34)
[2020-09-12 06:57] LABS: BASO % 0.1 % (0-2.0); HEMATOCRIT 32.4 % (35.4-49); HEMOGLOBIN 10.7 GM/dL (11.7-16.9); LYMPH % 4.5 % (8-40); MCHC 32.9 g/dl (32.0-35.9); MEAN CELL VOLUME 94.2 fl (80-96); MEAN PLT VOLUME 10.9 fl (7.5-11.1); MONO % 9.8 % (3.8-10.2); NEUT % 85.6 % (42.8-82.8); PLATELET COUNT 100 K/MM3 (134-434); RBC 3.44 M/mm3 (4.00-5.60); RDW 12.9 % (11.9-15.9); WHITE BLOOD COUNT 11.4 K/mm3 (4.0-10.0)
[2020-09-12] MEDS ORDERED: MIDAZOLAM HCL 2 MG/2 ML SINGLE DOSE VIAL IVPUSH ONE (07:01)
[2020-09-12 07:20] LABS: ALBUMIN 1.9 g/dl (3.4-5.0); CALCIUM 8.2 mg/dL (8.5-10.1)
[2020-09-12 07:21] LABS: MAGNESIUM 3.2 mg/dL (1.8-2.4)
[2020-09-12 07:24] LABS: BILIRUBIN,TOTAL 0.2 mg/dL (0.2-1); CREATININE 3.6 mg/dL (0.55-1.3); PHOSPHOROUS 6.3 mg/dL (2.5-4.9); TOT PROT 5.8 g/dl (6.4-8.2)
[2020-09-12 07:49] LABS: BLOOD UREA NITROGEN 138.6 mg/dL (7-18)
[2020-09-12] MEDS: AMINO ACIDS/PROTEIN HYDROLYS 30 ML LIQUID.PKT PO SCH ×2 (09:50→17:31)
[2020-09-12] MEDS: MUPIROCIN 2% TOPICAL OINTMENT FOR DECOLONIZATION NS SCH (09:51)
[2020-09-12] MEDS: DEXAMETHASONE SOD PHOSPHATE 4 MG/1 ML VIAL IVPUSH SCH (09:51)
[2020-09-12] MEDS: PANTOPRAZOLE SODIUM 40 MG VIAL IVPUSH SCH (09:57)
[2020-09-12] MEDS ORDERED: HEPARIN NA (PORCINE) 5,000 UNITS/ML 1ML VIAL IVPUSH PRN ×2 (10:53)
[2020-09-12] MEDS: SODIUM ZIRCONIUM CYCLOSILICATE (LOKELMA) 10 GM PACKET PO SCH (12:00)
[2020-09-12] MEDS: HEPARIN - 25,000 UNIT in SODIUM CHLORIDE 495 ML IV SCH (12:31)
[2020-09-12] MEDS: CHLORHEXIDINE GLUCONATE 4% CLEANSER FOR DECOLONIZATION TP SCH (22:02)
[2020-09-13] MEDS: NOREPINEPHRINE BITARTRATE 16,000 MCG in SODIUM CHLORIDE 484 ML IV SCH (06:15)
[2020-09-13] MEDS: INSULIN SLIDING SCALE (NOVOLOG) 1 VIAL SQ SCH ×5 (06:15→16:46)
[2020-09-13 07:21] LABS: BASO % 0.2 % (0-2.0); EOS % 0.1 % (0-4.5); HEMOGLOBIN 10.7 GM/dL (11.7-16.9); LYMPH % 8.9 % (8-40); MCH 30.8 pg (25.7-33.7); MCHC 32.4 g/dl (32.0-35.9); MEAN PLT VOLUME 11.2 fl (7.5-11.1); MONO % 8.7 % (3.8-10.2); NEUT % 82.1 % (42.8-82.8); PLATELET COUNT 94 K/MM3 (134-434); RBC 3.47 M/mm3 (4.00-5.60); RDW 13.3 % (11.9-15.9); WHITE BLOOD COUNT 11.7 K/mm3 (4.0-10.0)
[2020-09-13] MEDS: HEPARIN - 25,000 UNIT in SODIUM CHLORIDE 495 ML IV SCH (08:00)
[2020-09-13 08:24] LABS: ALBUMIN 1.8 g/dl (3.4-5.0); BILIRUBIN,TOTAL 0.2 mg/dL (0.2-1); CALCIUM 8.3 mg/dL (8.5-10.1); CREATININE 3.9 mg/dL (0.55-1.3); MAGNESIUM 3.4 mg/dL (1.8-2.4); PHOSPHOROUS 6.5 mg/dL (2.5-4.9); POTASSIUM 5.4 mmol/L (3.5-5.1); TOT PROT 5.9 g/dl (6.4-8.2)
[2020-09-13 08:58] LABS: BLOOD UREA NITROGEN 174.1 mg/dL (7-18)
[2020-09-13] MEDS: DEXAMETHASONE SOD PHOSPHATE 4 MG/1 ML VIAL IVPUSH SCH (09:08)
[2020-09-13] MEDS: PANTOPRAZOLE SODIUM 40 MG VIAL IVPUSH SCH (09:08)
[2020-09-13] MEDS: AMINO ACIDS/PROTEIN HYDROLYS 30 ML LIQUID.PKT PO SCH ×2 (09:08→17:13)
[2020-09-13] MEDS: SODIUM ZIRCONIUM CYCLOSILICATE (LOKELMA) 10 GM PACKET PO SCH (10:25)
[2020-09-13 11:07] LABS: ANISOCYTOSIS 2+; MACROCYTOSIS 0; PLATELET ESTIMATE DECREASED
[2020-09-13] MEDS: FENTANYL IVPB 500 MCG/100 ML BAG IVPB SCH ×2 (11:08)
[2020-09-13] MEDS: PROPOFOL 1,000,000 MCG/100 ML VIAL IVPB SCH ×2 (11:09→19:07)
[2020-09-13 15:50] VITALS: BMI 33.4
[2020-09-13] MEDS: POLYETHYLENE GLYCOL 3350 119 GM BTL PO SCH (16:18)
[2020-09-13] MEDS ORDERED: MIDAZOLAM 100 MG/100 ML MG IVPB ONE (18:41)
[2020-09-13] MEDS: MIDAZOLAM 100 MG in SODIUM CHLORIDE 100 ML IVPB SCH (19:07)
[2020-09-13 19:14] LABS: HEMATOCRIT 32.2 % (35.4-49); HEMOGLOBIN 10.3 GM/dL (11.7-16.9); MCH 30.6 pg (25.7-33.7); MCHC 32.1 g/dl (32.0-35.9); MEAN CELL VOLUME 95.4 fl (80-96); MEAN PLT VOLUME 10.5 fl (7.5-11.1); PLATELET COUNT 93 K/MM3 (134-434); RBC 3.38 M/mm3 (4.00-5.60); RDW 13.3 % (11.9-15.9); WHITE BLOOD COUNT 12.3 K/mm3 (4.0-10.0)
[2020-09-13] MEDS ORDERED: SODIUM ZIRCONIUM CYCLOSILICATE (LOKELMA) 5 GM PACKET PO ONE (22:00)
[2020-09-13] MEDS ORDERED: ACETAMINOPHEN 1000 MG/100 ML VIAL (NON FORMULARY) IVPB ONE (23:19)
[2020-09-14] MEDS: FENTANYL IVPB 500 MCG/100 ML BAG IVPB SCH ×3 (00:08→23:05)
[2020-09-14] MEDS: CHLORHEXIDINE GLUCONATE 4% CLEANSER FOR DECOLONIZATION TP SCH ×2 (00:08→23:05)
[2020-09-14] MEDS: INSULIN SLIDING SCALE (NOVOLOG) 1 VIAL SQ SCH ×5 (00:25→23:05)
[2020-09-14] MEDS ORDERED: PROPOFOL 1,000,000 MCG/100 ML VIAL ONE (01:06)
[2020-09-14] MEDS ORDERED: MIDAZOLAM 100 MG/100 ML MG IVPB ONE (01:06)
[2020-09-14] MEDS: NOREPINEPHRINE BITARTRATE 16,000 MCG in SODIUM CHLORIDE 484 ML IV SCH (03:15)
[2020-09-14 07:24] LABS: BASO % 0.2 % (0-2.0); HEMATOCRIT 31.4 % (35.4-49); HEMOGLOBIN 10.2 GM/dL (11.7-16.9); LYMPH % 6.3 % (8-40); MCH 30.7 pg (25.7-33.7); MCHC 32.5 g/dl (32.0-35.9); MEAN CELL VOLUME 94.7 fl (80-96); MONO % 8.8 % (3.8-10.2); NEUT % 84.7 % (42.8-82.8); PLATELET COUNT 103 K/MM3 (134-434); RBC 3.31 M/mm3 (4.00-5.60); WHITE BLOOD COUNT 17.4 K/mm3 (4.0-10.0)
[2020-09-14 07:35] LABS: INR 1.17 (0.83-1.09); PROTHROMBIN TIME (PATIENT) 14.1 SEC (9.7-13.0)
[2020-09-14 07:36] LABS: ACTIVATED PTT 108.7 SECONDS (25.2-36.5)
[2020-09-14] MEDS: AMINO ACIDS/PROTEIN HYDROLYS 30 ML LIQUID.PKT PO SCH ×2 (08:41→17:30)
[2020-09-14 08:49] LABS: PHOSPHOROUS 7.1 mg/dL (2.5-4.9)
[2020-09-14 08:57] LABS: ALBUMIN 1.8 g/dl (3.4-5.0); BILIRUBIN,TOTAL 0.3 mg/dL (0.2-1); CALCIUM 8.6 mg/dL (8.5-10.1); CREATININE 3.9 mg/dL (0.55-1.3); MAGNESIUM 3.4 mg/dL (1.8-2.4); POTASSIUM 5.4 mmol/L (3.5-5.1)
[2020-09-14] MEDS: DEXAMETHASONE SOD PHOSPHATE 4 MG/1 ML VIAL IVPUSH SCH (09:35)
[2020-09-14] MEDS: SODIUM ZIRCONIUM CYCLOSILICATE (LOKELMA) 10 GM PACKET PO SCH (09:38)
[2020-09-14] MEDS: PANTOPRAZOLE SODIUM 40 MG VIAL IVPUSH SCH (09:39)
[2020-09-14 09:48] LABS: ANISOCYTOSIS 1+; MACROCYTOSIS 0; OVALOCYTE 1+; PLATELET ESTIMATE NORMAL; TOXIC GRANULATION 1+
[2020-09-14 10:04] LABS: BLOOD UREA NITROGEN 194.1 mg/dL (7-18)
[2020-09-14] MEDS: HEPARIN - 25,000 UNIT in SODIUM CHLORIDE 495 ML IV SCH ×2 (11:00→16:54)
[2020-09-14] MEDS: POLYETHYLENE GLYCOL 3350 119 GM BTL PO SCH (11:50)
[2020-09-14] MEDS ORDERED: NOREPINEPHRINE D5W PREMIX 16,000 MCG/500 ML BAG IVPB ONE (19:30)
[2020-09-14] MEDS ORDERED: ACETAMINOPHEN 1000 MG/100 ML VIAL (NON FORMULARY) IVPB PRN (20:56)
[2020-09-14] MEDS: MIDAZOLAM 100 MG in SODIUM CHLORIDE 100 ML IVPB SCH (23:04)
[2020-09-15] MEDS: NOREPINEPHRINE BITARTRATE 16,000 MCG in SODIUM CHLORIDE 484 ML IV SCH (02:17)
[2020-09-15] MEDS: PROPOFOL 1,000,000 MCG/100 ML VIAL IVPB SCH ×2 (02:17→18:20)
[2020-09-15] MEDS ORDERED: MIDAZOLAM 100 MG/100 ML MG IVPB ONE ×2 (02:31→20:18)
[2020-09-15] MEDS ORDERED: EPINEPHrine 1:10,000 (P-F SYR) 1 MG/10 ML DISP.SYRIN ONE (06:05)
[2020-09-15 07:07] LABS: HEMATOCRIT 28.6 % (35.4-49); HEMOGLOBIN 9.2 GM/dL (11.7-16.9); MCHC 32.1 g/dl (32.0-35.9); MEAN CELL VOLUME 96.8 fl (80-96); MEAN PLT VOLUME 11.6 fl (7.5-11.1); PLATELET COUNT 101 K/MM3 (134-434); RBC 2.96 M/mm3 (4.00-5.60); RDW 13.3 % (11.9-15.9); WHITE BLOOD COUNT 17.5 K/mm3 (4.0-10.0)
[2020-09-15] MEDS: INSULIN SLIDING SCALE (NOVOLOG) 1 VIAL SQ SCH ×5 (07:42→22:05)
[2020-09-15] MEDS ORDERED: FENTANYL NS IVPB 500 MCG/100 ML BAG IVPB ONE (07:53)
[2020-09-15 09:01] LABS: CALCIUM 8.1 mg/dL (8.5-10.1); CREATININE 4.1 mg/dL (0.55-1.3); MAGNESIUM 3.4 mg/dL (1.8-2.4); PHOSPHOROUS 8.2 mg/dL (2.5-4.9); POTASSIUM 5.7 mmol/L (3.5-5.1)
[2020-09-15 09:12] LABS: BLOOD UREA NITROGEN 211.4 mg/dL (7-18)
[2020-09-15] MEDS ORDERED: PT OWN MED DRAWER 7, Y5N ONE ×2 (09:46→09:55)
[2020-09-15] MEDS: AMINO ACIDS/PROTEIN HYDROLYS 30 ML LIQUID.PKT PO SCH ×2 (09:57→16:54)
[2020-09-15] MEDS: PANTOPRAZOLE SODIUM 40 MG VIAL IVPUSH SCH (09:57)
[2020-09-15] MEDS: DEXAMETHASONE SOD PHOSPHATE 4 MG/1 ML VIAL IVPUSH SCH (09:57)
[2020-09-15] MEDS: SODIUM ZIRCONIUM CYCLOSILICATE (LOKELMA) 10 GM PACKET PO SCH (09:58)
[2020-09-15] MEDS: POLYETHYLENE GLYCOL 3350 119 GM BTL PO SCH (10:18)
[2020-09-15] MEDS: HEPARIN - 25,000 UNIT in SODIUM CHLORIDE 495 ML IV SCH (14:55)
[2020-09-15] MEDS: SODIUM CHLORIDE 0.45% 1,000 ML IV SCH (15:01)
[2020-09-15] MEDS: VECURONIUM BROMIDE 100 MG/100 ML BAG IVPB SCH (17:05)
[2020-09-15] MEDS: FENTANYL IVPB 500 MCG/100 ML BAG IVPB SCH (18:20)
[2020-09-15] MEDS: CHLORHEXIDINE GLUCONATE 4% CLEANSER FOR DECOLONIZATION TP SCH (21:46)
[2020-09-15] MEDS: MIDAZOLAM 100 MG in SODIUM CHLORIDE 100 ML IVPB SCH (21:46)
[2020-09-15] MEDS ORDERED: INSULIN (NOVOLOG) ASPART 100 UNITS/ML 10ML VIAL SQ ONE (21:48)
[2020-09-15] MEDS ORDERED: PIPERACILLIN/TAZOB 4.5 GM 4.5 GM in DEXTROSE 5%-WATER 100 ML IVPB SCH (22:00)
[2020-09-15] MEDS ORDERED: PIPERACILLIN/TAZOBACTAM 4.5 GM VIAL IVPB ONE (22:07)
[2020-09-15] MEDS ORDERED: DEXTROSE 5%-WATER 100 ML IVPB ONE (22:07)
[2020-09-16] MEDS: NOREPINEPHRINE BITARTRATE 16,000 MCG in SODIUM CHLORIDE 484 ML IV SCH ×2 (00:06→23:30)
[2020-09-16] MEDS: PIPERACILLIN/TAZOB 4.5 GM 4.5 GM in DEXTROSE 5%-WATER 100 ML IVPB SCH ×3 (00:06→23:17)
[2020-09-16] MEDS ORDERED: MIDAZOLAM 100 MG/100 ML MG IVPB ONE ×2 (02:10→15:46)
[2020-09-16] MEDS: VASOPRESSIN 40 UNITS in SODIUM CHLORIDE 98 ML IVPB SCH (06:14)
[2020-09-16] MEDS: INSULIN SLIDING SCALE (NOVOLOG) 1 VIAL SQ SCH ×4 (06:26→22:58)
[2020-09-16 07:07] LABS: BASO % 0.2 % (0-2.0); HEMATOCRIT 27.4 % (35.4-49); HEMOGLOBIN 8.8 GM/dL (11.7-16.9); LYMPH % 5.8 % (8-40); MCH 30.7 pg (25.7-33.7); MEAN PLT VOLUME 11.2 fl (7.5-11.1); MONO % 7.4 % (3.8-10.2); NEUT % 86.6 % (42.8-82.8); PLATELET COUNT 134 K/MM3 (134-434); RBC 2.86 M/mm3 (4.00-5.60); RDW 13.3 % (11.9-15.9); WHITE BLOOD COUNT 24.8 K/mm3 (4.0-10.0)
[2020-09-16 07:34] LABS: ALBUMIN 1.6 g/dl (3.4-5.0); CALCIUM 7.8 mg/dL (8.5-10.1); MAGNESIUM 3.4 mg/dL (1.8-2.4)
[2020-09-16 07:39] LABS: BILIRUBIN,TOTAL 0.3 mg/dL (0.2-1); TOT PROT 5.4 g/dl (6.4-8.2)
[2020-09-16 08:10] LABS: BLOOD UREA NITROGEN 231.4 mg/dL (7-18); PHOSPHOROUS 9.7 mg/dL (2.5-4.9); POTASSIUM 6.5 mmol/L (3.5-5.1)
[2020-09-16] MEDS ORDERED: CALCIUM GLUCONATE 10% - 1,000 MG/10 ML VIAL IVPUSH ONE (08:42)
[2020-09-16] MEDS ORDERED: INSULIN (NOVOLOG) ASPART 100 UNITS/ML 10ML VIAL SQ ONE (08:43)
[2020-09-16] MEDS ORDERED: DEXTROSE 50%-WATER - 25 GM/50 ML VIAL IVPUSH ONE (08:43)
[2020-09-16] MEDS: AMINO ACIDS/PROTEIN HYDROLYS 30 ML LIQUID.PKT PO SCH ×2 (08:44→17:59)
[2020-09-16] MEDS ORDERED: PIPERACILLIN/TAZOBACTAM 4.5 GM VIAL IVPB ONE ×2 (08:59→23:02)
[2020-09-16] MEDS ORDERED: DEXTROSE 5%-WATER 100 ML IVPB ONE ×2 (09:00→23:02)
[2020-09-16] MEDS ORDERED: INSULIN REGULAR HUMAN 100 UNITS/ML *VIAL IVPUSH ONE (09:30)
[2020-09-16] MEDS ORDERED: DEXTROSE 50%-WATER 25 GM/50 ML DISP.SYRIN ONE (09:33)
[2020-09-16] MEDS: PANTOPRAZOLE SODIUM 40 MG VIAL IVPUSH SCH (09:46)
[2020-09-16] MEDS: POLYETHYLENE GLYCOL 3350 119 GM BTL PO SCH (10:03)
[2020-09-16] MEDS: SODIUM ZIRCONIUM CYCLOSILICATE (LOKELMA) 10 GM PACKET PO SCH (10:03)
[2020-09-16] MEDS: DEXAMETHASONE SOD PHOSPHATE 4 MG/1 ML VIAL IVPUSH SCH (10:03)
[2020-09-16] MEDS ORDERED: PT OWN MED DRAWER 7, Y5N ONE (10:23)
[2020-09-16 12:23] LABS: ANISOCYTOSIS 0; MACROCYTOSIS 0; PLATELET ESTIMATE DECREASED
[2020-09-16 15:04] LABS: CALCIUM 8.2 mg/dL (8.5-10.1)
[2020-09-16 15:15] LABS: BLOOD UREA NITROGEN 213.6 mg/dL (7-18)
[2020-09-16 15:16] LABS: POTASSIUM 6.1 mmol/L (3.5-5.1)
[2020-09-16] MEDS: SODIUM CHLORIDE 0.45% 1,000 ML IV SCH (16:21)
[2020-09-16] MEDS: PROPOFOL 1,000,000 MCG/100 ML VIAL IVPB SCH (17:59)
[2020-09-16] MEDS: FENTANYL IVPB 500 MCG/100 ML BAG IVPB SCH (18:00)
[2020-09-16] MEDS: MIDAZOLAM 100 MG in SODIUM CHLORIDE 100 ML IVPB SCH (18:00)
[2020-09-16] MEDS: CHLORHEXIDINE GLUCONATE 4% CLEANSER FOR DECOLONIZATION TP SCH (22:58)
[2020-09-17] MEDS ORDERED: NOREPINEPHRINE D5W PREMIX 16,000 MCG/500 ML BAG IVPB ONE (00:52)
[2020-09-17] MEDS ORDERED: MIDAZOLAM 100 MG/100 ML MG IVPB ONE (03:51)
[2020-09-17] MEDS: INSULIN SLIDING SCALE (NOVOLOG) 1 VIAL SQ SCH ×2 (06:15→12:29)
[2020-09-17 06:21] LABS: ARTERIAL BLD GAS O2 SATURATION 79.8 mmHg (95-98); ARTERIAL BLOOD GAS BASE EXCESS -20.6 mmol/L (-2-2); ARTERIAL BLOOD GAS PO2 70.7 mmHg (80-100)
[2020-09-17 06:23] LABS: ALLENS TEST POSITIVE
[2020-09-17 06:24] LABS: VENT MODE A/C; VENT RATE 30
[2020-09-17 06:27] LABS: ARTERIAL BLOOD GAS pH 6.912 (7.350-7.450)
[2020-09-17 06:52] LABS: BASO % 0.7 % (0-2.0); HEMATOCRIT 25.2 % (35.4-49); HEMOGLOBIN 8.1 GM/dL (11.7-16.9); LYMPH % 6.5 % (8-40); MCH 31.2 pg (25.7-33.7); MEAN CELL VOLUME 97.6 fl (80-96); MEAN PLT VOLUME 11.5 fl (7.5-11.1); NEUT % 85.8 % (42.8-82.8); PLATELET COUNT 119 K/MM3 (134-434); RBC 2.58 M/mm3 (4.00-5.60); RDW 13.4 % (11.9-15.9); WHITE BLOOD COUNT 24.9 K/mm3 (4.0-10.0)
[2020-09-17 07:11] LABS: CALCIUM 7.7 mg/dL (8.5-10.1)
[2020-09-17 07:12] LABS: ALBUMIN 1.4 g/dl (3.4-5.0); MAGNESIUM 3.2 mg/dL (1.8-2.4)
[2020-09-17 07:16] LABS: BILIRUBIN,TOTAL 0.5 mg/dL (0.2-1); TOT PROT 5.2 g/dl (6.4-8.2)
[2020-09-17 08:11] LABS: PHOSPHOROUS 11.1 mg/dL (2.5-4.9); POTASSIUM 7.1 mmol/L (3.5-5.1)
[2020-09-17] MEDS ORDERED: CALCIUM GLUCONATE 10% - 1,000 MG/10 ML VIAL IVPUSH ONE (08:22)
[2020-09-17] MEDS ORDERED: INSULIN REGULAR HUMAN 100 UNITS/ML *VIAL IVPUSH ONE (08:22)
[2020-09-17] MEDS ORDERED: DEXTROSE 50%-WATER - 25 GM/50 ML VIAL IVPUSH ONE (08:23)
[2020-09-17] MEDS: VASOPRESSIN 40 UNITS in SODIUM CHLORIDE 98 ML IVPB SCH (10:20)
[2020-09-17] MEDS: AMINO ACIDS/PROTEIN HYDROLYS 30 ML LIQUID.PKT PO SCH (10:20)
[2020-09-17] MEDS: VECURONIUM BROMIDE 100 MG/100 ML BAG IVPB SCH (10:21)
[2020-09-17] MEDS ORDERED: PIPERACILLIN/TAZOBACTAM 4.5 GM VIAL IVPB ONE (10:30)
[2020-09-17] MEDS ORDERED: DEXTROSE 5%-WATER 100 ML IVPB ONE (10:30)
[2020-09-17] MEDS ORDERED: PT OWN MED DRAWER 7, Y5N ONE (10:31)
[2020-09-17] MEDS ORDERED: DEXTROSE 50%-WATER 25 GM/50 ML DISP.SYRIN ONE (10:50)
[2020-09-17] MEDS: DEXAMETHASONE SOD PHOSPHATE 4 MG/1 ML VIAL IVPUSH SCH (11:16)
[2020-09-17] MEDS: SODIUM ZIRCONIUM CYCLOSILICATE (LOKELMA) 10 GM PACKET PO SCH (11:16)
[2020-09-17] MEDS: PIPERACILLIN/TAZOB 4.5 GM 4.5 GM in DEXTROSE 5%-WATER 100 ML IVPB SCH (11:17)
[2020-09-17] MEDS: PANTOPRAZOLE SODIUM 40 MG VIAL IVPUSH SCH (11:17)
[2020-09-17] MEDS: POLYETHYLENE GLYCOL 3350 119 GM BTL PO SCH (11:17)
[2020-09-17 11:48] LABS: ANISOCYTOSIS 1+; MACROCYTOSIS 1+; PLATELET ESTIMATE DECREASED
[2020-09-17] MEDS ORDERED: NOREPINEPHRINE BITARTRATE 8,000 MCG/500 ML BAG IVPB ONE (12:53)
[2020-09-17 14:57] VITALS: BP 64/43; PULSE 55; TEMP 98.3
[2020-09-17] MEDS: SODIUM CHLORIDE 0.45% 1,000 ML IV SCH (14:57)
== END 2020-09-17 15:00 | disposition expired | DRG 207 ==
LOC: JER 11:06 → JERBED 17:34 → J6S 09-05 06:43 → J4W 09-05 17:52 → JICU 09-07 18:21
PROVIDERS: ATTEND Internal Medicine Pulmonary Disease
PROC: XW13325 Transfusion of Convalescent Plasma (Nonautologous) into Peripheral Vein, Percutaneous Approach, New Technology Group 5 (ICD-10-PCS; 2020-09-06)
PROC: XW033E5 Introduction of Remdesivir Anti-infective into Peripheral Vein, Percutaneous Approach, New Technology Group 5 (ICD-10-PCS; 2020-09-06)
PROC: 5A1955Z Respiratory Ventilation, Greater than 96 Consecutive Hours (ICD-10-PCS; principal; 2020-09-08)
PROC: 0BH17EZ Insertion of Endotracheal Airway into Trachea, Via Natural or Artificial Opening (ICD-10-PCS; 2020-09-08)
PROC: 0DH67UZ Insertion of Feeding Device into Stomach, Via Natural or Artificial Opening (ICD-10-PCS; 2020-09-08)
PROC: 05HM33Z Insertion of Infusion Device into Right Internal Jugular Vein, Percutaneous Approach (ICD-10-PCS; 2020-09-08)
PROC: B543ZZA Ultrasonography of Right Jugular Veins, Guidance (ICD-10-PCS; 2020-09-08)
DX: U07.1 COVID-19 (principal); J12.82 Pneumonia due to coronavirus disease 2019; J80 Acute respiratory distress syndrome; R65.21 Severe sepsis with septic shock; A41.9 Sepsis, unspecified organism; N17.9 Acute kidney failure, unspecified; M35.89 Other specified systemic involvement of connective tissue; N18.9 Chronic kidney disease, unspecified; K21.9 Gastro-esophageal reflux disease without esophagitis; J44.9 Chronic obstructive pulmonary disease, unspecified; I12.9 Hypertensive chronic kidney disease with stage 1 through stage 4 chronic kidney disease, or unspecified chronic kidney disease; N40.0 Benign prostatic hyperplasia without lower urinary tract symptoms; E87.5 Hyperkalemia; R55 Syncope and collapse; R19.7 Diarrhea, unspecified; D69.6 Thrombocytopenia, unspecified; I95.9 Hypotension, unspecified; E66.9 Obesity, unspecified; Z68.36 Body mass index [BMI] 36.0-36.9, adult; E03.9 Hypothyroidism, unspecified; E86.9 Volume depletion, unspecified; E78.5 Hyperlipidemia, unspecified
CPT/HCPCS: 31500; 36415; 36430; 36600; 70450-TC; 71045-TC-FY; 80048; 80053; 80076; 81003; 82248; 82436; 82550; 82553; 82565; 82728; 82803; 82962; 83605; 83615; 83735; 84100; 84132; 84133; 84300; 84484; 85025; 85027; 85379; 85610; 85730; 86140; 86850; 86900; 86901; 87040; 87086; 87186; 87426; 87804; 87899; 93005; 93010; 94002; 97116-GP; 97162-GP; J0131; J1100; J1644; P9017